=== PATIENT | female | born 1955 | race Caucasian/White ===

== ENCOUNTER 2018-03-25 10:30 | Observation (INO) ==
[~2018-03-25 10:30] MED LIST: Bupivacaine PF 0.5% Inj 30 ML Vial ONE; Bupivacaine/Epinephrine PF Inj 0.5% 30 ML Vial ONE; EPINEPHrine PF/SF Inj 1 MG/ML Ampul I-OCULAR ONE; Isosulfan Blue Inj 50 MG/5 ML Vial SQ ONE; Lidocaine 1%/Epinephrine 1:100,000 Inj 50 ML Vial ONE
[2018-03-25] MEDS ORDERED: Metoprolol Tartrate 25 MG Tablet PO ONE (10:43)
[2018-03-25] MEDS ORDERED: Chlorhexidine Gluconate 2% 1 Pack (2 Cloths) TOPICAL ONE (10:43)
[2018-03-25] MEDS ORDERED: Sodium Chlor 0.9% Inj 500 ML IV.SIG SCH (11:00)
[2018-03-25] MEDS ORDERED: fentaNYL Citrate Inj 250 MCG/5 ML Ampul ONE (11:10)
[2018-03-25] MEDS: ceFAZolin 2 GM Premix Inj 2 GM/50 ML PIGGYBACK IV.SIG PRN ×2 (11:15→12:14)
--- NOTE | 2018-03-25 12:55 | MH ---
cc: Suzanne Stout MD DATE OF ADMISSION: 03/25/2018 PRINCIPAL DIAGNOSIS: Right breast cancer. ATTENDING PHYSICIAN: Suzanne Stout MD HISTORY OF PRESENT ILLNESS: The patient is a 62-year-old female noted to have multiple right breast masses in the 1 o'clock location, 3 cm from the nipple. Her initial imaging was done at [facility] on 12/21/2017, and this demonstrated an ill-defined 1 cm mass at 1 o'clock with microcalcifications in the upper outer right breast, as well as the upper inner right breast. A complex 9 mm cyst was identified in the 1 o'clock location of the left breast, 2 cm from the nipple. Stereotactic biopsy of the medial and lateral microcalcifications in the right breast, as well as ultrasound-guided biopsy of the lesion at 1 o'clock demonstrated lobular neoplasia in the right breast, as well as poorly differentiated invasive ductal carcinoma. The mass in the left breast was also biopsied, and was felt to be consistent with fibrous cysts. She has opted for mastectomy with immediate reconstruction, and desires a bilateral procedure. MEDICAL PROBLEMS: Include hypertension, history of noninsulin dependent type 2 diabetes mellitus, history of morbid obesity and chronic obstructive pulmonary disease. PAST SURGICAL HISTORY: Included gastric bypass in 2015, rotator cuff repair of the right shoulder, and right shoulder replacement in 12/2017. FAMILY HISTORY: Noncontributory. CURRENT MEDICATIONS: Include: 1. Celebrex 200 mg b.i.d. p.r.n. 2. Fluoxetine 20 mg daily. 3. Hydrochlorothiazide 25 mg daily. 4. Synthroid 150 mcg daily. 5. Lisinopril 10 mg b.i.d. 6. Metformin 1000 mg b.i.d. 7. Multivitamins. 8. Omeprazole 20 mg b.i.d. 9. Potassium daily. 10. Ropinirole 0.5 mg at bedtime and 1 mg at bedtime. ALLERGIES: SHE HAS NO DRUG ALLERGIES. She does not take hormone replacement therapy. REVIEW OF SYSTEMS: A 12-point review of systems was significant for shortness of breath and mild reflux. PHYSICAL EXAMINATION: GENERAL: She was 5 feet 4 inches, weighed 201 pounds with a BMI of 34.5. Blood pressure was 101/60, temperature 98.6, heart rate 68, respirations 18. HEENT: Unremarkable. NECK: Supple with no adenopathy or thyromegaly. LUNGS: Clear throughout. CARDIAC: Revealed a normal S1 and S2, with no murmurs, rubs or gallops. BREASTS: Revealed no palpable masses with well-healed biopsy sites in both breasts. There was no adenopathy. ABDOMEN: Soft and nontender with well-healed port sites. There were no masses. EXTREMITIES: Significant for scars on the right shoulder. The remainder of her exam was unremarkable. IMPRESSION AND PLAN: Ms. Shafer has a clinical stage I right breast cancer with associated lateral atypia. She has opted for bilateral mastectomy with immediate reconstruction as well, and will also require a right sentinel lymph node biopsy. She understands all the risks and benefits of the procedure and has agreed to proceed. MD JOE Schaefer/rh , 09:22 AM , 09:31 AM
[2018-03-25] MEDS ORDERED: fentaNYL Citrate Inj 100 MCG/2 ML Ampul ONE (13:27)
--- NOTE | 2018-03-25 14:57 | MP ---
cc: Suzanne Stout MD DATE OF OPERATION: 03/25/2018 PRINCIPAL DIAGNOSIS:. Right breast cancer. PROCEDURE PERFORMED: Bilateral mastectomy with right axillary sentinel lymph node biopsy and immediate tissue asset availability leader reconstruction. SURGEONS: Suzanne Stout MD, and Yobany Hemphill MD ANESTHESIA: General via LMA device. INDICATION: The patient is a 62-year-old female recently diagnosed with multifocal right breast cancer. She has opted for bilateral mastectomy with immediate reconstruction and now presents for the procedure. FINDINGS AT THE TIME OF SURGERY: No gross evidence of carcinoma was identified in the right breast. There were several enlarged soft right axillary lymph nodes. The largest was over 2 cm in size and had a count of 28, and this was sentinel lymph node #1. A 1.5 cm lymph node had a count of 18, and a 1 cm lymph node had a count of 17, and these were sentinel nodes #2 and #3. The background count in the axilla was 2, and there was also a less than 1 cm palpable lymph node in level 2 which had no count and was sent as sentinel lymph node #4. DESCRIPTION OF PROCEDURE: After informed consent was obtained and site verification was performed, the patient was brought to the radiology suite where she underwent peritumoral radionucleotide injection. She was then brought to the major operating room where she underwent general anesthesia via an LMA device. She was given a single dose of IV Ancef, and sequential compression hose were placed. Both breasts and arms were prepped and draped in sterile fashion. A classic elliptical incision was made on each side via an anterior approach because of a large amount of redundant skin; 200 mL of tumescent solution mixed with 30 mL of 0.5% Marcaine with epinephrine was infiltrated circumferentially around each breast in the plane between the subcutaneous fat and anterior breast fascia. Further sharp dissection was performed in the same plane superiorly to the clavicle, medially to the parasternal area, inferiorly to the anterior rectus sheath, and laterally to the axilla. Electrocautery was used to dissect the breast tissue off the pectoralis muscle including the pectoralis fascia with the specimen. The breast was then amputated in the axilla and oriented with the skin anterior, 1 short suture medially, and 1 long suture superiorly. The breast was weighed off the field and sent for permanent pathologic evaluation. Attention was then turned to the right axilla, and the clavipectoral fascia was divided with electrocautery. The level 1 axilla was entered, and there were some enlarged palpable nodes in mid-level 1. Each of these were circumferentially dissected free from surrounding structures using the Harmonic scalpel with the counts as noted. There was also a palpable node in level 2 which was slightly firm, and this was circumferentially dissected free from surrounding structures using the Harmonic scalpel and sent as sentinel lymph node #4. The long thoracic and thoracodorsal neurovascular bundles as well as the intercostal brachial nerve and axillary vein were identified and preserved throughout the dissection. Good hemostasis was noted, and reconstruction was then performed by Dr. Hemphill which will be included on a separate dictation. MD JOE Schaefer/alberto , 02:29 PM , 02:41 PM
--- NOTE | 2018-03-25 15:34 | P.OP ---
Preoperative Diagnosis: Right breast cancer Postoperative Diagnosis: Right breast cancer Procedure: 1 Right mastectomy and Axillary node sampling by Dr. Stout 2 Left simple mastectomy by Dr. Hemphill 3 Bilateral breast tissue paramedic instructor and Allomax reconstruction by Dr. Hemphill Implants: Allergan Tissue Expanders [id number] (nominal capacity 400 cc)- RIght side SN [id number], Left side [id number] Allomax tissue grafts 8x16 cm, [id number] Right side SN [id number], Left side SN [id number] Anesthesia: GETA Surgeon: Yobany Hemphill MD Coloring Room Man: Fred Quintanilla Rn Estimated blood loss (mL): 100 Operation and Findings: Indications: Right breast cancer - patient desiring bilateral mastectomies - and immediate tissue paramedic instructor stage I reconstruction. Patient has undergone extensive discussion about recon options and pros, cons, risks, possible complications including the [facility] informed consent brochure. She is willing to go ahead with tissue paramedic instructor and Allomax immediate recon on both sides. Does not want any muscle flaps or autologous recon at this time. She understands that there are risks of bleeding, hematoma, seroma, flap necrosis, wound healing problems, wound dehiscence, infection, loss of reconstruction prosthesis if there is infection or exposure and multiple future surgeries or other interventions may be necessary. There may be asymmetry between two sides due to multiple factors, there may be loss of reconstruction on one side or both sides. Future reconstruction efforts may depend upon the tissue and health status in future - including any radiation therapy, chemotherapy etc. There may be lymphatic blockage / lymphedema on one or both sides. Chronic pain, scarring , uneven surface appearances, reduced / restricted function of her chest wall muscles etc. Flap numbness and variations of thickness / vascularity possible and may persist. Hypertrophic scar, keloid formation etc possible. Other possible general risks including those with anesthesia, medications, smoking and other medical issues also accepted by patient. Second stage recon with implants explained for future, expanders and implants shown, both saline, silicone, smooth, textured - also round, tear drops, different profiles and sizes explained. She wants to have a slightly smaller breast for the final reconstruction compared to her normal size. Also she will need flap design to remove a fair amount of excess skin along with the areola and nipples and may opt for a nipple areola recon in future She is willing to go ahead with the stage I tissue paramedic instructor and Allomax reconstruction. Procedure: Preoperative markings of patient's existing IMF was done in holding area. A standard oblique design including removing central island of excess skin was used - patient has grade 3 ptosis, atrophic breast glandular tissues and rather large bra rolls with moderate obesity and diabetes. She also has been a long time smoker although she has quit approx 6 years back. She is willing to accept a long oblique scar with better vascular protection of the smaller upper and lower flaps as opposed to a Portillo pattern mastopexy flaps where the entire blood supply would be from a single side only to a large flap. Patient was brought to the OR, anesthesia started, time out completed , prep and drape done, antibiotics given. Right side surgery will be dictated by Dr. Stout for her part. Left side breast was injected with tumescent mix of 50 cc lidocaine, 1 cc epi and 30 cc Bupivacaine in 3000 cc Saline - total 380 cc used on the left side. Upper and lower incision made - flaps elevated in fatty plane up to the IMF on the lower flap and to the subclavicular area on the upper flap. Minimal bleeding encountered. Breast lower pole lifted off the IMF and dissected up - exposing the pectoralis muscle borders and intercostal space clearly. Tumescent mix used between the breast base and pectoralis fascia. Dissection continued, preserving the pectoralis fascia and releasing the breast mound and skin / nipple / areola along the borders. Breast tissue specimen also suture marked at superior 12 o'clock position. Tissue weight 1215 grams. (The right side specimen weighed 1260 grams.) Hemostasis completed and the breast pockets and chest wall flaps irrigated and washed clean with saline on both sides. Subpectoral pockets created for expanders, partially releasing the lower lateral border of the pectoralis, preserving the most medial aspects and inframammary fold position. Allomax tissue grafts hydrated, treated with Gentamicin and sutured in position, smooth side down, to the anterior axillary line and IMF levels and rounding off the outer lower corners. Allomax grafts also fenestrated in lower half to allow drainage. [employer] tissue expanders 400cc nominal volumes used, rinsed and treated with gentamicin as well. Air evacuated and expanders placed in the subpectoral position, Allomax free edges tacked to the lateral border of pectoralis muscles over the expanders. Expanders filled with sterile saline using a three way no touch technic. Final fill 340 cc on each side. Community Engagement Representative position and projection were fairly well matched. FITZ drains inserted through separate stab incisions, Breast flaps smoothed over the expanders and closed in two layers - vicryls and prolene. Left side needed two FITZ drains, one in axilla and one in subcutaneous pocket. Drain tubes secured with Nylon sutures. Drains activated with the breast flaps being adjusted for position over the expanders. Flap color remained uniformly good on both sides, minimal bruising noted at the end of surgery. Sterile dressing applied after clean up. Intraoperative blood loss less than 15-20 cc for the Left mastectomy and bilateral recon part, overall blood loss less than 100 cc estimated. Patient remained stable. No complications. Yobany Hemphill MD, FACS
[2018-03-25] MEDS ORDERED: Morphine Sulfate Inj 8 MG/ML Vial ONE (15:36)
[2018-03-25] MEDS ORDERED: Ketorolac Inj 30 MG/ML (IVP) Vial ONE (15:39)
[2018-03-25] MEDS ORDERED: HYDROmorphone PF Inj 2 MG/ML Vial ONE (15:43)
[2018-03-25] MEDS: HYDROmorphone PF Inj 2 MG/ML Vial IV.PUSH PRN (23:21)
[2018-03-26] MEDS: HYDROmorphone PF Inj 2 MG/ML Vial IV.PUSH PRN ×4 (06:14→22:32)
--- NOTE | 2018-03-26 08:50 | P.PNPLA ---
Subjective Remarks: Pattient doing well post op Pain reduced, ok with Rx. Still at bed rest. Vitals ok No nausea, fever or other issues Breasts - flaps good color and soft, edema mild, no hematoma, drains active Plan to DC when ok with Dr. Stout, will see pt back in office on wednesday Objective Vital Signs: Vital Signs - 24 hr 03/25/18 11:22 03/25/18 15:34 03/25/18 15:42 Temperature 98.5 F 97.6 F Pulse Rate 54 L 61 Respiratory Rate 16 14 14 Blood Pressure 139/81 131/78 Pulse Oximetry 97 03/25/18 15:43 03/25/18 15:51 03/25/18 16:06 Temperature Pulse Rate 61 60 66 Respiratory Rate 14 14 Blood Pressure 136/81 129/78 119/63 Pulse Oximetry 98 98 99 03/25/18 16:11 03/25/18 16:21 03/25/18 16:51 Temperature Pulse Rate 58 L 56 L Respiratory Rate 15 15 15 Blood Pressure 93/61 L 95/61 L Pulse Oximetry 99 99 03/25/18 17:08 03/25/18 17:19 03/25/18 17:29 Temperature 97.8 F Pulse Rate 56 L 53 L 60 Respiratory Rate 14 14 14 Blood Pressure 84/55 L 103/64 115/69 Pulse Oximetry 95 96 03/25/18 17:42 03/25/18 20:17 03/25/18 23:48 Temperature 96.5 F L 97.7 F Pulse Rate 56 L 53 L 75 Respiratory Rate 16 16 Blood Pressure 129/66 111/55 L Pulse Oximetry 97 95 Intake & Output 03/24/18 03/25/18 03/26/18 03/27/18 06:59 06:59 06:59 06:59 Intake Total 4850 / 4850 Output Total 1140 / 1140 Balance 3710 / 3710 Weight 90.4 kg
--- NOTE | 2018-03-26 13:44 | P.PNGS ---
Subjective Patient reports: still having pain, tolerating liquids well (Some nausea with solid foods) Physical Exam Vital signs: Vital Signs 03/25/18 15:34 03/25/18 15:42 03/25/18 15:43 Temperature 97.6 F Pulse Rate 61 61 Respiratory Rate 14 14 14 Blood Pressure 131/78 136/81 Pulse Oximetry 97 98 03/25/18 15:51 03/25/18 16:06 03/25/18 16:11 Temperature Pulse Rate 60 66 Respiratory Rate 14 15 Blood Pressure 129/78 119/63 Pulse Oximetry 98 99 03/25/18 16:21 03/25/18 16:51 03/25/18 17:08 Temperature Pulse Rate 58 L 56 L 56 L Respiratory Rate 15 15 14 Blood Pressure 93/61 L 95/61 L 84/55 L Pulse Oximetry 99 99 95 03/25/18 17:19 03/25/18 17:29 03/25/18 17:42 Temperature 97.8 F Pulse Rate 53 L 60 56 L Respiratory Rate 14 14 Blood Pressure 103/64 115/69 Pulse Oximetry 96 03/25/18 20:17 03/25/18 23:48 03/26/18 07:00 Temperature 96.5 F L 97.7 F Pulse Rate 53 L 75 Respiratory Rate 16 16 18 Blood Pressure 129/66 111/55 L Pulse Oximetry 97 95 03/26/18 08:00 03/26/18 10:21 03/26/18 11:35 Temperature 98.5 F Pulse Rate Respiratory Rate 15 18 18 Blood Pressure 103/65 Pulse Oximetry 98 Intake & Output 03/25/18 03/26/18 03/26/18 18:59 06:59 18:59 Intake Total 3500 / 3500 1350 / 1350 1000 / 1000 Output Total 515 / 515 625 / 625 Balance 2985 / 2985 725 / 725 1000 / 1000 Weight 90.265 kg 90.4 kg Intake: IV 1000 / 1000 1350 / 1350 1000 / 1000 LR 1000 mL Inj 1,000 ML @ 150 1000 / 1000 1000 / 1000 1000 / 1000 mls/hr IV.SIG .Q6H40M ROJELIO Rx#: [id number] Ancef 2 GM Premix Inj 2 gm In 50 / 50 50 ml @ 100 mls/hr IV.SIG INVENTORY CONTROLLER PRN Rx#:[id number] Ancef Inj 1,000 MG In NS Inj 300 / 300 100 ML @ 200 mls/hr IV.SIG Q6H ROJELIO Rx#:[id number] Anesthesia Amount 1500 / 1500 Other 1000 / 1000 Output: Urine 230 / 230 Estimated Blood Loss 200 / 200 Urine Amount (Catheter) 500 / 500 Indwelling Urethral Catheter 500 / 500 Wound Drainage 85 / 85 125 / 125 # 1 Left Breast 30 / 30 50 / 50 # 2 Right Breast 40 / 40 50 / 50 # 3 Right Breast 15 / 15 25 / 25 Other: Other Intake Source Saline Solution Weight On Admission 90.265 kg Narrative: Drain output 120/90 right, 80cc on left. Serosanguinous fluid. Hopkins catheter still in place. - Constitutional no acute distress - Urinary Catheter Management Indwelling Urethral Catheter Cath placed during this visit: yes Reason for continuing: Hourly intake/output Insertion date: 03/25/18 Insertion time: 12:51 Assessment and Plan - Assessment (1) Breast cancer in female Code(s): C50.919 - Malignant neoplasm of unspecified site of unspecified female breast Status: Acute Plan: Not ambulating secondary to oxygen and hopkins catheter. Will check room air and remove hopkins. Anticipate discharge tomorrow. (1) Breast cancer in female Qualifiers: Breast location: upper outer quadrant of breast Laterality: right
--- NOTE | 2018-03-27 10:21 | P.PNGS ---
Subjective Patient reports: feels better (Less nausea amd pain improved.) Physical Exam Vital signs: Vital Signs 03/26/18 10:21 03/26/18 11:35 03/26/18 12:00 Temperature 98.3 F Pulse Rate 56 L Respiratory Rate 18 18 17 Blood Pressure 92/57 L Pulse Oximetry 96 03/26/18 13:32 03/26/18 14:05 03/26/18 14:40 Temperature Pulse Rate Respiratory Rate 18 Blood Pressure Pulse Oximetry 99 85 L 03/26/18 16:00 03/26/18 17:27 03/26/18 20:00 Temperature 98.5 F 98.0 F Pulse Rate 66 78 Respiratory Rate 14 18 16 Blood Pressure 124/74 138/82 Pulse Oximetry 92 L 95 03/26/18 20:20 03/26/18 23:55 03/27/18 03:24 Temperature 98.2 F Pulse Rate 65 Respiratory Rate 16 18 Blood Pressure 112/57 L Pulse Oximetry 94 L 92 L 03/27/18 07:09 03/27/18 08:00 Temperature 98 F Pulse Rate 67 Respiratory Rate 18 20 Blood Pressure 121/59 L Pulse Oximetry 90 L Intake & Output 03/26/18 03/27/18 03/27/18 18:59 06:59 18:59 Intake Total 2500 / 2500 2100 / 2100 800 / 800 Output Total 435 / 435 795 / 795 Balance 2065 / 2065 1305 / 1305 800 / 800 Weight 90.3 kg Intake: IV 2200 / 2200 2000 / 2000 800 / 800 LR 1000 mL Inj 1,000 ML @ 150 2000 / 2000 1800 / 1800 800 / 800 mls/hr IV.SIG .Q6H40M ROJELIO Rx#: [id number] Ancef Inj 1,000 MG In NS Inj 200 / 200 200 / 200 100 ML @ 200 mls/hr IV.SIG Q6H ROJELIO Rx#:[id number] Oral 300 / 300 100 / 100 Output: Urine 600 / 600 Urine Amount (Catheter) 250 / 250 Indwelling Urethral Catheter 250 / 250 Wound Drainage 185 / 185 195 / 195 # 1 Left Breast 5 / 5 80 / 80 # 2 Right Breast 120 / 120 90 / 90 # 3 Right Breast 60 / 60 25 / 25 Narrative: Drain 210/85 right, 85 on left. Flaps clean and viable. - Urinary Catheter Management Indwelling Urethral Catheter Cath placed during this visit: yes, but has since been removed by the nurse Reason for continuing: Decision to DC catheter Insertion date: 03/25/18 Insertion time: 12:51 Removal date: 03/26/18 Removal time: 13:00 Assessment and Plan - Assessment (1) Breast cancer in female Code(s): C50.919 - Malignant neoplasm of unspecified site of unspecified female breast Status: Acute - Plan Discharge home. Followup as scheduled on Wednesday. (1) Breast cancer in female Qualifiers: Breast location: upper outer quadrant of breast Laterality: right
[2018-03-27] MEDS ORDERED: Lidocaine PF 1% Inj 5 ML Syringe OTHER ONE (12:16)
[2018-03-27 13:23] VITALS: RESP 18
[2018-03-27 13:25] VITALS: BP 131/69; PULSE 71; TEMP 99; O2SAT 95
[2018-03-27] MEDS ORDERED: Celecoxib 200 MG Capsule PO SCH (21:00)
[2018-03-28] MEDS ORDERED: Levothyroxine 125 MCG Tablet PO SCH (06:00)
[2018-03-28] MEDS ORDERED: hydroCHLOROthiazide 25 MG Tablet PO SCH (09:00)
[2018-03-28] MEDS ORDERED: Pantoprazole Sodium 20 MG DR Tablet PO SCH (09:00)
[2018-03-28] MEDS ORDERED: Lisinopril 10 MG Tablet PO SCH (09:00)
[2018-03-28] MEDS ORDERED: FLUoxetine 20 MG Capsule PO SCH (09:00)
== END 2018-03-27 12:53 | disposition home or self-care (01) ==
LOC: PHEDA 10:30 → PHSDC 10:30
PROVIDERS: ADMIT Surgery; ATTEND Surgery